=== PATIENT | female | born 1990 | race African-American/Black ===

== ENCOUNTER 2024-08-04 02:30 | Inpatient (IN) | payer OTHER ==
[2024-08-04] MEDS: LACTATED RINGERS SOLUTION 1,000 ML/1,000 ML INFUS.BAG IV SCH (03:00)
[2024-08-04] MEDS ORDERED: PROMETHAZINE HCL 25 MG/1 ML VIAL IVPB ONE (03:21)
[2024-08-04] MEDS ORDERED: BUTORPHANOL TARTRATE 1 MG/ML VIAL IVPB ONE (03:21)
[2024-08-04 03:24] VITALS: BMI 34.9
[2024-08-04 03:26] LABS: BASO % 0.1 % (0-2.0); EOS % 0.3 % (0-4.5); HEMATOCRIT 36.8 % (32.4-45.2); HEMOGLOBIN 11.9 GM/dL (10.7-15.3); LYMPH % 10.4 % (8-40); MCH 29.8 pg (25.7-33.7); MCHC 32.5 g/dl (32.0-36.0); MEAN CELL VOLUME 91.8 fl (80-96); MEAN PLT VOLUME 7.8 fl (7.5-11.1); MONO % 4.6 % (3.8-10.2); NEUT % 84.6 % (42.8-82.8); PLATELET COUNT 263 10^3/uL (134-434); RBC 4.01 M/mm3 (3.60-5.2); RDW 14.4 % (11.6-15.6); WHITE BLOOD COUNT 14.9 K/mm3 (4.0-10.0)
[2024-08-04 03:49] LABS: BLOOD UREA NITROGEN 13.4 mg/dL (7-18); CALCIUM 9.8 mg/dL (8.5-10.1)
[2024-08-04 03:52] LABS: CREATININE 0.6 mg/dL (0.55-1.3)
[2024-08-04] MEDS ORDERED: OXYTOCIN 20 UNITS in 0.9% NS 20 UNIT/1,000 ML INFUS.BAG IV ONE (04:02)
[2024-08-04] MEDS: OXYTOCIN 20 UNITS in 0.9% NS 20 UNIT/1,000 ML INFUS.BAG IV SCH (04:05)
[2024-08-04] MEDS ORDERED: BISACODYL 10 MG SUPP.RECT RC PRN (04:14)
[2024-08-04] MEDS ORDERED: oxyCODONE HCL 5 MG TABLET PO PRN (04:14)
[2024-08-04] MEDS ORDERED: ACETAMINOPHEN 325 MG TABLET (FP) PO PRN (04:14)
[2024-08-04] MEDS ORDERED: METHYLERGONOVINE MALEATE 0.2 MG/1 ML AMP IM PRN (04:14)
[2024-08-04] MEDS ORDERED: WITCH HAZEL 50% (TUCKS) 40 PAD/JAR PAD TP PRN (04:14)
[2024-08-04] MEDS ORDERED: BENZOCAINE 20% 57 GM BOTTLE TP PRN (04:14)
[2024-08-04] MEDS ORDERED: BENZOCAINE 28 GM HEMORRHOIDAL OINTMENT TP PRN (04:14)
[2024-08-04] MEDS: IBUPROFEN 600 MG TABLET (FP) PO PRN (04:20)
[2024-08-04 04:27] LABS: SYPHILIS W/ RPR CONF REACTIVE (NONREACTIVE)
[2024-08-04 04:45] LABS: HIV INTERPRETATION NEGATIVE (NEGATIVE)
[2024-08-04] MEDS: FERROUS SO4 325 MG TABLET (FP) PO SCH (09:41)
[2024-08-04] MEDS: PRENATAL VITAMINS W/ FOLIC ACID TABLET (FP) PO SCH (09:41)
[2024-08-04 18:14] VITALS: RESP 18
[2024-08-05 08:00] LABS: BASO % 0.1 % (0-2.0); EOS % 1.2 % (0-4.5); HEMOGLOBIN 10.9 GM/dL (10.7-15.3); LYMPH % 17.7 % (8-40); MCH 30.5 pg (25.7-33.7); MEAN CELL VOLUME 92.4 fl (80-96); MEAN PLT VOLUME 7.8 fl (7.5-11.1); MONO % 3.6 % (3.8-10.2); NEUT % 77.4 % (42.8-82.8); PLATELET COUNT 285 10^3/uL (134-434); RBC 3.56 M/mm3 (3.60-5.2); RDW 14.7 % (11.6-15.6); WHITE BLOOD COUNT 17.2 K/mm3 (4.0-10.0)
[2024-08-05] MEDS ORDERED: SENNOSIDES/DOCUSATE COMBO (SENNA PLUS) TABLET (UD) PO PRN (22:00)
[2024-08-06 10:05] VITALS: BP 120/78; PULSE 81; TEMP 98.2
== END 2024-08-06 14:30 | disposition home or self-care (01) | DRG 560 ==
LOC: JLDR 02:30 → UNDOADMIN 02:30 → JERBED 02:30 → J3W 06:03
PROVIDERS: ADMIT Obstetrics & Gynecology; ATTEND Obstetrics & Gynecology
PROC: 10E0XZZ Delivery of Products of Conception, External Approach (ICD-10-PCS; principal; 2024-08-04)
PROC: 0HQ9XZZ Repair Perineum Skin, External Approach (ICD-10-PCS; 2024-08-04)
DX: O48.0 Post-term pregnancy (principal); O69.81X0 Labor and delivery complicated by cord around neck, without compression, not applicable or unspecified; O77.0 Labor and delivery complicated by meconium in amniotic fluid; O70.0 First degree perineal laceration during delivery; Z3A.41 41 weeks gestation of pregnancy; Z37.0 Single live birth
CPT/HCPCS: 36415; 59409; 80048; 85025; 86593; 86780; 86850; 86900; 86901; 87389